=== PATIENT | female | born 1955 | race Two or more races ===

== ENCOUNTER 2016-11-02 17:44 | Emergency (ER) | payer OTHER ==
[2016-11-02 17:57] VITALS: BP 134/72; PULSE 99; TEMP 99.1; BMI 38.2
--- NOTE | 2016-11-02 18:57 | PDOC ---
History of Present Illness - General Chief Complaint: Respiratory Stated Complaint: COLD SYMPTOMS Time Seen by Provider: 11/02/16 18:25 History Source: Patient, Family Exam Limitations: No Limitations - History of Present Illness Initial Comments: 11/02/16 18:54 Agent is here with complaints of cough, fevers, general body aches sore throat pain and runny nose 2 days. States is used [id number] medication but is not improving Timing/Duration: reports: just prior to arrival, changing over time, getting worse Severity: reports: moderate Past History - Travel Traveled outside of the country in the last 30 days: No Close contact w/someone who was outside of country & ill: No - Past Medical History Allergies/Adverse Reactions: Allergies Allergy/AdvReac Type Severity Reaction Status Date / Time No Known Allergies Allergy Verified 11/02/16 17:57 Home Medications: Ambulatory Orders Acetaminophen [Tylenol] 325 mg PO Q4HWA PRN 01/24/15 Amlodipine Besylate [Norvasc -] 5 mg PO DAILY 01/24/15 Calcium 500 mg PO DAILY 01/24/15 Valsartan/Hydrochlorothiazide [Diovan Hct 320-25 mg Tablet] 1 tab PO DAILY 01/24 Albuterol 0.083% Nebulizer [place] [Ventolin 0.083% Nebulizer Soln -] 1 neb NEB Q6H #30 vial 09/20/15 Albuterol Sulfate Inhaler - [Ventolin HFA Inhaler -] 1 - 2 inh PO QID PRN #1 inhaler 09/20/15 Omeprazole [Prilosec] 40 mg PO DAILY 09/20/15 Oseltamivir Phosphate [Tamiflu -] 75 mg PO BID #10 capsule 11/02/16 Promethazine HCl/Codeine [Prometh-Codein 6.25-10 mg/5 ml] 5 ml PO Q8H PRN #50 syrup MDD 4 11/02/16 Asthma: Yes HTN: Yes - Surgical History Cholecystectomy: Yes - Psycho/Social/Smoking Cessation Hx Anxiety: No Suicidal Ideation: No Smoking Status: No Smoking History: Never smoked Have you smoked in the past 12 months: No Number of Cigarettes Smoked Daily: 0 Hx Alcohol Use: Yes (OCCASIONALLY) Drug/Substance Use Hx: No Substance Use Type: None Review of Systems - Review of Systems Able to Perform ROS?: Yes Is the patient limited Indian proficient: Yes Constitutional: Yes: Symptoms Reported, See HPI, Fever, Loss of Appetite, Malaise HEENTM: Yes: Symptoms Reported, See HPI, Nose Pain, Nose Congestion, Throat Pain , Throat Swelling Respiratory: Yes: Symptoms reported, See HPI, Cough, Shortness of Breath, Wheezing Musculoskeletal: Yes: Symptoms Reported, See HPI, Muscle Pain Neurological: Yes: Symptoms reported, See HPI, Headache All Other Systems: Reviewed and Negative *Physical Exam - Vital Signs Last Vital Signs Temp Pulse Resp BP Pulse Ox 99.1 F 99 H 18 134/72 96 11/02/16 17:52 11/02/16 17:52 11/02/16 17:52 11/02/16 17:52 11/02/16 17:52 - Physical Exam General Appearance: Yes: Nourished, Appropriately Dressed, Moderate Distress HEENT: positive: MYESHA, Pharyngeal Erythema, Nasal Congestion, Rhinorrhea. negative: TMs Normal (congestive the landmarks easily visualized), Pharynx Normal Respiratory/Chest: positive: Lungs Clear, Normal Breath Sounds (course but clear ). negative: Wheezing Extremity: positive: Normal Capillary Refill, Normal Inspection Integumentary: positive: Dry, Warm, Pale Neurologic: positive: client advocate II-XII NML intact, Fully Oriented, Alert, Normal Mood/ Affect, Normal Response, Motor Strength 5/5 Progress Note - Progress Note Progress Note: Upper respiratory infection, probable influenza. Will treat with Tamiflu and promethazine with codeine *DC/Admit/Observation/Transfer Diagnosis at time of Disposition: Influenzal acute upper respiratory infection - Discharge Dispostion Disposition: HOME Condition at time of disposition: Stable Admit: No - Prescriptions Prescriptions: Promethazine HCl/Codeine [Prometh-Codein 6.25-10 mg/5 ml] 5 ml PO Q8H PRN #50 syrup MDD 4 PRN Reason: Cough Oseltamivir Phosphate [Tamiflu -] 75 mg PO BID #10 capsule - Patient Instructions Additional Instructions: Rest, drink lots of fluids: Teas, water, soups, Pedialyte Saltwater gargles Steamy showers/seem to face break up mucus Old-fashioned treatments help! Avoid contact with others until fevers and cough resolved as this is very contagious Lots of handwashing and good hygiene Continue [id number] medications for symptomatic relief Tylenol or Motrin for fever and pain Take all of Tamiflu as directed: 1 tab every 12 hours for 5 days Followup with private physician in one to 2 days as needed or if worsening Return to emergency department for worsened symptoms, fevers, dehydration Influenza takes between 5 and 7 days for resolution To not participate in any activity, work, or school until fevers and cough are gone for at least one day
== END 2016-11-02 19:06 | disposition home or self-care (01) ==
LOC: JERFT 17:44
DX: J11.1 Influenza due to unidentified influenza virus with other respiratory manifestations (principal); I10 Essential (primary) hypertension; J45.909 Unspecified asthma, uncomplicated
CPT/HCPCS: 99281-25

== ENCOUNTER 2023-10-12 19:16 | Emergency (ER) | payer OTHER ==
[2023-10-12 19:46] LABS: HEMATOCRIT 41.4 % (32.4-45.2); HEMOGLOBIN 13.7 G/dL (10.7-15.3); MCH 30.4 pg (25.7-33.7); MCHC 33.1 g/dl (32.0-36.0); MEAN CELL VOLUME 91.7 fl (80-96); MEAN PLT VOLUME 8.8 fl (7.5-11.1); PLATELET COUNT 296.9 10^3/uL (134-434); RBC 4.51 10^6/uL (3.60-5.2); RDW 14.6 % (11.6-15.6); WHITE BLOOD COUNT 8.6 10^3/uL (4.0-10.8)
[2023-10-12 19:55] VITALS: BMI 41.1
[2023-10-12 20:00] LABS: ALBUMIN 4.4 g/dl (3.4-5.0); BILIRUBIN,TOTAL 0.4 mg/dl (0.2-1); CALCIUM 9.8 mg/dl (8.5-10.1); CREATININE 0.9 mg/dl (0.6-1.3); TOT PROT 6.8 g/dl (6.4-8.2)
[2023-10-12 20:01] LABS: PLATELET ESTIMATE ADEQUATE
[2023-10-12 21:02] VITALS: BP 112/56; PULSE 79; RESP 16; TEMP 98.9
[2023-10-12 22:23] LABS: EPITHELIAL CELLS 0-5 /hpf
== END 2023-10-12 22:33 | disposition home or self-care (01) ==
LOC: FER 19:16
DX: R07.2 Precordial pain (principal); R06.02 Shortness of breath; Z20.822 Contact with and (suspected) exposure to COVID-19
CPT/HCPCS: 0241U-QW; 36415; 71045-TC-FY; 80053; 81003; 81015; 84484; 85027; 87086; 93005; 99285-25

== ENCOUNTER 2023-11-24 08:55 | Emergency (ER) | payer OTHER ==
[2023-11-24 09:10] VITALS: BMI 36.6
[2023-11-24] MEDS ORDERED: ACETAMINOPHEN INJECTION 100 ML IVPB ONE (10:51)
[2023-11-24 10:54] LABS: EOS % 1.4 % (0-4.5); HEMATOCRIT 40.9 % (32.4-45.2); HEMOGLOBIN 13.8 GM/dL (10.7-15.3); LYMPH % 41.7 % (8-40); MCH 29.9 pg (25.7-33.7); MCHC 33.6 g/dl (32.0-36.0); MEAN CELL VOLUME 88.8 fl (80-96); MEAN PLT VOLUME 9.3 fl (7.5-11.1); MONO % 10.5 % (3.8-10.2); NEUT % 45.4 % (42.8-82.8); PLATELET COUNT 268 10^3/uL (134-434); RBC 4.61 M/mm3 (3.60-5.2); RDW 13.6 % (11.6-15.6); WHITE BLOOD COUNT 4.6 K/mm3 (4.0-10.0)
[2023-11-24] MEDS: ACETAMINOPHEN 1000 MG/100 ML BAG IVPB ONE (10:57)
[2023-11-24] MEDS ORDERED: MAG HYDROX/AL HYDROX/SIMETH 30 ML UNIT-DOSE CUP ONE (11:12)
[2023-11-24] MEDS ORDERED: FAMOTIDINE 20 MG/50 ML IVPB 20 MG/50 ML MG IVPB ONE (11:13)
[2023-11-24] MEDS: FAMOTIDINE 20 MG/50 ML IVPB 20 MG/50 ML MG IVPB ONE (11:17)
[2023-11-24] MEDS: MAG HYDROX/AL HYDROX/SIMETH 30 ML UNIT-DOSE CUP PO ONE (11:17)
[2023-11-24 11:24] LABS: POTASSIUM 3.6 mmol/L (3.5-5.1)
[2023-11-24 11:26] LABS: BLOOD UREA NITROGEN 7.4 mg/dL (7-18); CALCIUM 9.4 mg/dL (8.5-10.1)
[2023-11-24 11:27] LABS: ALBUMIN 3.8 g/dl (3.4-5.0)
[2023-11-24 11:29] LABS: CREATININE 0.8 mg/dL (0.55-1.3)
[2023-11-24 11:31] LABS: BILIRUBIN,TOTAL 0.6 mg/dL (0.2-1); TOT PROT 6.8 g/dl (6.4-8.2)
[2023-11-24 13:53] LABS: EPI CELLS 13 /uL (0-25.1); HYALINE CASTS 1 /uL (0-3.1); URINE APPEARANCE CLEAR; URINE BACTERIA 17 /uL (0-1359); URINE BILIRUBIN NEGATIVE (NEGATIVE); URINE COLOR YELLOW; URINE GLUCOSE (UA) NEGATIVE (NEGATIVE); URINE KETONE TRACE (NEGATIVE); URINE LEUK ESTERASE NEGATIVE (NEGATIVE); URINE NITRITE NEGATIVE (NEGATIVE); URINE PROTEIN NEGATIVE (NEGATIVE); URINE RBC 65 /uL (0-23.9); URINE UROBILINOGEN 0.2 mg/dL (0.2-1.0); URINE WBC 9 /uL (0-25.8)
[2023-11-24 16:03] VITALS: BP 138/80; PULSE 71; RESP 18; TEMP 98.7
== END 2023-11-24 16:17 | disposition home or self-care (01) ==
LOC: JER 08:55
PROC: 3E033GC Introduction of Other Therapeutic Substance into Peripheral Vein, Percutaneous Approach (ICD-10-PCS; principal; 2023-11-24)
PROC: 3E033NZ Introduction of Analgesics, Hypnotics, Sedatives into Peripheral Vein, Percutaneous Approach (ICD-10-PCS; 2023-11-24)
DX: R10.11 Right upper quadrant pain (principal); R63.0 Anorexia
CPT/HCPCS: 36415; 74160-TC; 76705-TC; 80053; 81003; 83690; 84484; 85025; 93005; 93010; 99285-25; J0131; Q9967

== ENCOUNTER 2024-11-09 12:39 | Emergency (ER) | payer OTHER ==
[2024-11-09 12:46] VITALS: BP 149/99; PULSE 106; RESP 18; TEMP 98.6; BMI 37.8
== END 2024-11-09 15:26 | disposition home or self-care (01) ==
LOC: FER 12:39
DX: J45.20 Mild intermittent asthma, uncomplicated (principal); R05.9 Cough, unspecified; R09.81 Nasal congestion; R50.9 Fever, unspecified
CPT/HCPCS: 0241U-QW; 71046-TC-FY; 99284-25